=== PATIENT | male | born 1995 | race African-American/Black ===

== ENCOUNTER 2020-12-29 21:51 | Emergency (ER) | payer SELFPAY ==
[2020-12-29] MEDS ORDERED: Lidocaine 1% (PF) 30 ML VIAL ONE (22:03)
[2020-12-29] MEDS ORDERED: Lidocaine 1% w/Epinephrine 1:100K 20 ML VIAL ONE (22:04)
[2020-12-29] MEDS ORDERED: Bacitracin 1 PK ONE (22:26)
[2020-12-29] MEDS ORDERED: Sulfameth/Trimethoprim DS 800-160mg TAB ONE (22:30)
== END 2020-12-29 22:41 | disposition home or self-care (01) ==
LOC: NAV ERS 21:51
DX: L72.3 Sebaceous cyst (principal); E10.9 Type 1 diabetes mellitus without complications; Z79.4 Long term (current) use of insulin
CPT/HCPCS: 10060; J2001